=== PATIENT | female | born 1995 | race Caucasian/White ===

== ENCOUNTER → 2023-02-12 | Outpatient (CLI) | payer OTHER ==
[2023-02-12 16:01] LABS: HEMATOCRIT 37.4 % (36.0-47.0); HEMOGLOBIN 13.1 g/dl (12.0-15.5); MEAN CORPUSCULAR VOLUME 88.4 fl (80.0-96.0); PLATELET COUNT, AUTOMATED 242 10^3/uL (150-450); RED BLOOD COUNT 4.23 10^6/uL (4.00-5.40); WHITE BLOOD COUNT 9.3 10^3/uL (4.0-10.0)
[2023-02-12 17:02] LABS: HIV 1&2 SCREEN NEGATIVE (NEGATIVE)
[2023-02-12 17:10] LABS: HEPATITIS C VIRUS ABY INDEX 0.06 INDEX (<0.8)
== END ==
LOC: M PLALAB 14:30
PROVIDERS: ATTEND Specialist
DX: Z34.01 Encounter for supervision of normal first pregnancy, first trimester (principal)

== ENCOUNTER → 2023-03-12 | Outpatient (CLI) | payer OTHER | LOC: M PLALAB 11:42 | PROVIDERS: ATTEND Specialist | DX: Z34.01 Encounter for supervision of normal first pregnancy, first trimester (principal) ==

== ENCOUNTER → 2023-03-12 | Outpatient (CLI) | payer OTHER ==
[2023-03-12 16:41] LABS: CHLAMYDIA DNA AMPLIFICATION NEGATIVE (NEGATIVE); GC DNA AMPLIFICATION NEGATIVE (NEGATIVE)
== END ==
LOC: M PLALAB 11:41
PROVIDERS: ATTEND Obstetrics & Gynecology
DX: Z34.80 Encounter for supervision of other normal pregnancy, unspecified trimester (principal)

== ENCOUNTER → 2023-04-07 | Outpatient (REF) | payer OTHER | LOC: M SMT 13:04 | PROVIDERS: ATTEND Obstetrics & Gynecology | DX: Z34.82 Encounter for supervision of other normal pregnancy, second trimester (principal) ==

== ENCOUNTER → 2023-04-07 | Outpatient (REF) | payer OTHER | LOC: M PLALAB 10:15 | PROVIDERS: ATTEND Obstetrics & Gynecology | DX: Z34.82 Encounter for supervision of other normal pregnancy, second trimester (principal) ==

== ENCOUNTER → 2023-05-01 | Outpatient (CLI) | payer OTHER | LOC: M WHC 09:43 | PROVIDERS: ATTEND Obstetrics & Gynecology | DX: Z34.82 Encounter for supervision of other normal pregnancy, second trimester (principal) ==

== ENCOUNTER → 2023-06-12 | Outpatient (CLI) | payer OTHER | LOC: M WHC 06:50 | PROVIDERS: ATTEND Advanced Practice Midwife | DX: Z34.02 Encounter for supervision of normal first pregnancy, second trimester (principal) ==

== ENCOUNTER → 2023-08-29 | Outpatient (REF) | payer OTHER | LOC: M SFHCWAGY 12:13 | PROVIDERS: ATTEND Obstetrics & Gynecology | DX: Z34.93 Encounter for supervision of normal pregnancy, unspecified, third trimester (principal); Z3A.36 36 weeks gestation of pregnancy ==

== ENCOUNTER → 2023-09-05 | Outpatient (REF) | payer OTHER ==
[~2023-09-05] MED LIST: ACET325C5 PO; PRENTAB9 PO; TUMS500C PO; VENTAER INH
== END ==
LOC: M SFHCWAGY 12:36
PROVIDERS: ATTEND Obstetrics & Gynecology
DX: R30.0 Dysuria (principal)

== ENCOUNTER 2023-09-28 07:54 | Inpatient (IN) | payer OTHER ==
[~2023-09-28] VITALS: Ht 165.1 cm; Wt 89.8 kg
[2023-09-28] VITALS (19 sets, daily range): BP systolic 116–140; BP diastolic 65–92; O2SAT 97–98
[2023-09-28] MEDS ORDERED: ACET325C5 PO (08:14)
[2023-09-28] MEDS ORDERED: PRENTAB9 PO (08:14)
[2023-09-28] MEDS ORDERED: TUMS500C PO (08:14)
[2023-09-28] MEDS ORDERED: HOME MED LIST COMPLETE! XX SCH (08:20)
[2023-09-28 08:58] LABS: HEMATOCRIT 28.6 % (36.0-47.0); MEAN CORPUSCULAR HEMOGLOBIN 24.8 pg (27.0-33.0); MEAN CORPUSCULAR HGB CONC 31.5 g/dl (32.0-36.5); MEAN CORPUSCULAR VOLUME 78.8 fl (80.0-96.0); PLATELET COUNT, AUTOMATED 209 10^3/uL (150-450); RED BLOOD COUNT 3.63 10^6/uL (4.00-5.40); WHITE BLOOD COUNT 7.7 10^3/uL (4.0-10.0)
[2023-09-28] MEDS ORDERED: TRANEXAMIC ACID INJection 1,000 MG in NS 100 ML IV PRN (09:25)
[2023-09-28] MEDS ORDERED: OXYTOCIN DRIP 30 UNITS in IV 1 EA IV PRN (09:25)
[2023-09-28] MEDS ORDERED: CARBOPROST TROMETHAMINE 250 MCG/ML AMP IM PRN (09:25)
[2023-09-28] MEDS: miSOPROStol 50MCG 1/2 TABLET BUC ONE ×3 (09:42→20:28)
[2023-09-28] MEDS: ACETAMINOPHEN 500 MG TAB PO PRN (10:08)
[2023-09-28] MEDS ORDERED: VENTAER INH (10:24)
[2023-09-28] MEDS ORDERED: EPIDURAL/PCA KEYS XX PRN (22:45)
[2023-09-28] MEDS ORDERED: NALOXONE INJ 0.4MG/1ML VIAL IV PRN (22:45)
[2023-09-28] MEDS ORDERED: diphenhydrAMINE 50MG/ML VIAL IV PRN (22:45)
[2023-09-29] VITALS (59 sets, daily range): BP systolic 87–136; BP diastolic 50–79; O2SAT 98
[2023-09-29] MEDS: FENTANYL/ROPIVACAINE/NACL BAG 100 ML EPIDURAL SCH
[2023-09-29] MEDS: LACTATED RINGER'S 1000 ML IV PRN
[2023-09-29] MEDS: OXYTOCIN DRIP 30 UNITS in IV 1 EA IV SCH (01:09)
[2023-09-29] MEDS: LR 1,000 ML IV SCH (01:09)
[2023-09-29] MEDS: ePHEDrine SULFATE 25 MG/5 ML(5MG/ML) SYRINGE IVP PRN (05:30)
[2023-09-29] MEDS: LR 500 ML IV PRN (05:36)
[2023-09-29] MEDS: ONDANSETRON 4MG 2ML VIAL IV PRN (08:22)
[2023-09-29] MEDS: METHYLERGONOVINE MALEATE 0.2MG/ML 1ML VIAL IM PRN (18:59)
[2023-09-29] MEDS ORDERED: ACETAMINOPHEN 500 MG TAB PO PRN (22:30)
[2023-09-29] MEDS ORDERED: DOCUSATE SODIUM 100MG CAPSULE PO PRN (22:30)
[2023-09-29] MEDS ORDERED: IBUPROFEN 600MG TAB PO PRN (22:30)
[2023-09-29] MEDS ORDERED: DIBUCAINE 1% OINTMENT 30GM TOP PRN (22:30)
[2023-09-29] MEDS ORDERED: MOM 30ML SUSPENSION UDC PO PRN (22:30)
[2023-09-29] MEDS ORDERED: RHO(D) IMMUNE GLOBULIN/MALTOSE 500MCG(2500IU)/2.2ML VIAL (WINRHO) IM SCH (22:30)
[2023-09-29] MEDS ORDERED: ANUSOL HC CREAM 30GM TOP PRN (22:30)
[2023-09-29] MEDS ORDERED: ACETAMINOPHEN TAB 650MG DOSE (2X325MG) PO PRN (22:30)
[2023-09-29] MEDS: IBUPROFEN 800 MG TAB PO PRN (22:40)
[2023-09-30 06:00] VITALS: BP 106/65; O2SAT 97
[2023-09-30] MEDS: PRENATAL VITAMINS CHEWABLE TABLET PO SCH (09:39)
[2023-09-30 18:10] VITALS: BP 111/61; O2SAT 100
[2023-10-01 06:00] VITALS: BP 102/62; O2SAT 98
[2023-10-01] MEDS: MEASLES,MUMPS,RUBELLA VACCINE INJ (MMR-II) SC.IMMUN ONE (09:00)
== END 2023-10-01 14:50 | disposition home or self-care (01) | DRG 560 ==
LOC: M LDI 07:54 → M OBS 09-29 21:00
PROVIDERS: ADMIT Obstetrics & Gynecology; ATTEND Advanced Practice Midwife
PROC: 3E0P7GC Introduction of Other Therapeutic Substance into Female Reproductive, Via Natural or Artificial Opening (ICD-10-PCS; 2023-09-28)
PROC: 10E0XZZ Delivery of Products of Conception, External Approach (ICD-10-PCS; principal; 2023-09-29)
PROC: 10907ZC Drainage of Amniotic Fluid, Therapeutic from Products of Conception, Via Natural or Artificial Opening (ICD-10-PCS; 2023-09-29)
PROC: 0HQ9XZZ Repair Perineum Skin, External Approach (ICD-10-PCS; 2023-09-29)
DX: O48.0 Post-term pregnancy (principal); O70.0 First degree perineal laceration during delivery; Z91.018 Allergy to other foods; Z3A.40 40 weeks gestation of pregnancy; Z37.0 Single live birth

== ENCOUNTER → 2024-05-06 | Outpatient (CLI) | payer OTHER ==
[2024-05-06 17:48] LABS: ALBUMIN 4.3 G/DL (3.2-5.2); ALKALINE PHOSPHATASE 93 U/L (35-104); ALT/SGPT 25 U/L (7.0-40); AST/SGOT 14 U/L (<34); BILIRUBIN,TOTAL 0.4 MG/DL (0.3-1.2); BLOOD UREA NITROGEN 13 MG/DL (9-23); CALCIUM LEVEL 9.8 MG/DL (8.5-10.1); CARBON DIOXIDE LEVEL 28 MMOL/L (20-31); CHLORIDE LEVEL 102 MMOL/L (98-107); CREATININE FOR GFR 0.58 MG/DL (0.55-1.30); GLOMERULAR FILTRATION RATE > 60.0 (>60); GLUCOSE, FASTING 84 MG/DL (60-100); POTASSIUM SERUM 4.2 MMOL/L (3.5-5.1); SODIUM LEVEL 139 MMOL/L (136-145); TOTAL PROTEIN 7.9 G/DL (5.7-8.2)
[2024-05-06 18:34] LABS: HEMOGLOBIN A1c 5.4 % (4.0-6.0)
[2024-05-07 08:20] LABS: THYROID STIMULATING HORMONE 1.698 uIU/ML (0.55-4.78)
[2024-05-07 08:21] LABS: FREE T4 1.11 NG/DL (0.89-1.76)
== END ==
LOC: M PLALAB 14:51
PROVIDERS: ATTEND Advanced Practice Midwife
DX: R63.5 Abnormal weight gain (principal)

== ENCOUNTER → 2024-05-06 | Outpatient (REF) | payer OTHER ==
[2024-05-11 11:54] LABS: HPV APTIMA Not Detected (Not Detected)
== END ==
LOC: M PLALAB 14:43
PROVIDERS: ATTEND Advanced Practice Midwife
DX: R87.610 Atypical squamous cells of undetermined significance on cytologic smear of cervix (ASC-US) (principal); Z77.9 Other contact with and (suspected) exposures hazardous to health